=== PATIENT | female | born 1940 | race Caucasian/White ===

== ENCOUNTER 2017-06-29 10:18 | Day surgery (SDC) | payer MEDICARE, OTHER ==
[~2017-06-29] VITALS: Ht 160 cm; Wt 54.4 kg
--- NOTE | ~2017-06-29 | EGD ---
EGD REPORT [facility] [address] [address] NAME: MAEGAN KING : 40 STATUS : REG [facility]#: [id number] AGE: 76 ADM/REG DATE : 06/29/17 MR#: [id number] REPORT SERV DATE: 06/29/17 DICTATED BY: NOEL CASTANO DATE: 06/29/17 REPORT STATUS : Draft [facility]: [facility] DATE: 06/29/17 Endoscopy Center Patient Name: Maegan King Date of : 1940 Attending MD: NOEL CASTANO MD Procedure Date No Time: 06/29/2017 Procedure: Upper GI endoscopy Indications: Dysphagia Referring MD: GINA SEE MD Medicines: See the Anesthesia note for documentation of the administered medications Complications: No immediate complications. Procedure: Pre-Anesthesia Assessment: - ASA Grade Assessment: III - A patient with severe systemic disease. After obtaining informed consent, the endoscope was passed under direct vision. Throughout the procedure, the patient's blood pressure, pulse, and oxygen saturations were monitored continuously. The GIF [id number] was introduced through the mouth, and advanced to the second part of duodenum. The upper GI endoscopy was accomplished without difficulty. The patient tolerated the procedure well. Findings: The examined duodenum was normal. Mild inflammation was found in the gastric antrum. The cardia and gastric fundus were normal on retroflexion. A small hiatus hernia was present. Esophageal stricture at eso inlet and 25 cm, A guidewire was placed under fluoroscopic guidance and the scope was withdrawn. Dilation was performed with a Savary dilator with no resistance at 18 Fr, no resistance at 21 Fr and no resistance at 24 Fr. Impression: - Normal examined duodenum. - Gastritis. - Hiatus hernia. - Esophageal stricture at eso inlet and 25 cm Recommendation: - Patient has a contact number available for emergencies. The signs and symptoms of potential delayed complications were discussed with the patient. Return to normal activities tomorrow. Written discharge instructions were provided to the patient. - Clear liquid diet today. EGD REPORT [address] [address] NAME: MAEGAN KING : 40 STATUS : REG [facility] PAT#: [id number] AGE: 76 ADM/REG DATE : 06/29/17 MR#: [id number] REPORT SERV DATE: 06/29/17 DICTATED BY: NOEL CASTANO DATE: 06/29/17 REPORT STATUS : Draft TRANSCRIBED BY: [employer] DATE: 06/29/17 - Continue present medications. - Repeat the upper endoscopy in 4 weeks for retreatment. - Resume pureed diet in 24 hrs as tolerated Call my office to report on symptoms in 2 weeks Procedure Code(s): --- Professional --- 20310, Esophagogastroduodenoscopy, flexible, transoral; with dilation of gastric/duodenal stricture(s) (eg, balloon, bougie) Diagnosis Code(s): --- Professional --- K29.70, Gastritis, unspecified, without bleeding K44.9, Diaphragmatic hernia without obstruction or gangrene R13.10, Dysphagia, unspecified CPT copyright 2013 [employer]. All rights reserved. The codes documented in this report are preliminary and upon development assistant review may be revised to meet current compliance requirements. Noel Castano MD NOEL CASTANO MD 06/29/2017 12:04 PM This report has been signed electronically. Number of Addenda: 0 Note Initiated On: 06/29/2017 10:41 AM Scope Withdrawal Time 0 hours 0 minutes 0 seconds [address] [address]
[~2017-06-29 10:18] MED LIST: AMIT25 PO; AMITRIPTYLINE PO; AMOX250SUS PO; BACDS PO; CARASPUDL PO; CELEBREX1 PO; CELEBREX2 PO; ESTRA/NORETH1 TAB OR; FIORICET 50-301 EACH PO; FIORICET-COD 51 EACH PO; FIRST-OMEPR2 MG/1 ML PO; FLOVENT220 INH; HYOMAX-SL0.125 MG PO; LIPITOR10 PO; LIPITOR20 PO; LORTABLIQ PO; MAGIC MOUTHWASH; MERIBIN5 MG PO; NORV25 PO; NYS500UDL; NYS500UDL PO; OTC EYE DROPS OP; PRELONE PO; PREV30 PO; RESTASIS OPH; SUCR PO; TRIAMCINOLONE 0.1% PO; VICODIN; ZOFRAN4 PO; [UNRECOGNIZED DRUG - OTHER] PO; [UNRECOGNIZED DRUG - OTHER] PO
== END 2017-06-29 23:59 | disposition home or self-care (01) ==
LOC: DMU 10:18
PROVIDERS: Internal Medicine Gastroenterology
PROC: 0D758ZZ Dilation of Esophagus, Via Natural or Artificial Opening Endoscopic (ICD-10-PCS; principal; 2017-06-29 11:30)
DX: K22.2 Esophageal obstruction (principal); K44.9 Diaphragmatic hernia without obstruction or gangrene; K29.70 Gastritis, unspecified, without bleeding; I10 Essential (primary) hypertension; Z88.6 Allergy status to analgesic agent; Z98.890 Other specified postprocedural states; Z79.899 Other long term (current) drug therapy; Z93.1 Gastrostomy status
CPT/HCPCS: 76000; J2405